=== PATIENT | female | born 1950 | race Caucasian/White ===

== ENCOUNTER 2017-02-21 15:48 | Emergency (ER) | payer MEDICARE, BC ==
[2017-02-21 16:34] VITALS: BP 130/74
--- NOTE | 2017-02-21 17:23 | UC ---
[facility] HPI - HPI Summary HPI Summary: TWO DAYS OF RIGHT LOWER JAW TOOTH PAIN. TRIED TO ESTABLISH DENTAL VISIT TODAY. NO FEVER. NO DISCHARGE. - History of Current Complaint Chief Complaint: UCDentalProblem Stated Complaint: DENTAL COMPLAINT Time Seen by Provider: 02/21/17 16:44 Hx Obtained From: Patient, Family/Production Support Analyst Onset/Duration: Gradual Onset, Lasting Days Severity: Moderate Pain Intensity: 5 Pain Scale Used: 0-10 Numeric Aggravating Factor(s): Chewing - Allergies/Home Medications Allergies/Adverse Reactions: Allergies Allergy/AdvReac Type Severity Reaction Status Date / Time Procaine [From Novocain] AdvReac Intermediate MAKES HER Verified 02/21/17 16:34 HEART RACE PMH/Surg Hx/FS Hx/Imm Hx Previously Healthy: Yes - Surgical History Surgical History: Yes Surgery Procedure, Year, and Place: R knee surgery - Family History Known Family History: Positive: None Negative: Blood Disorder - Social History Occupation: Retired Lives: With Family Alcohol Use: Occasionally Substance Use Type: None Smoking Status (MU): Never Smoked Tobacco Review of Systems Constitutional: Negative Skin: Negative Eyes: Negative ENT: Dental Pain Respiratory: Negative Cardiovascular: Negative Gastrointestinal: Negative Genitourinary: Negative Motor: Negative Neurovascular: Negative Musculoskeletal: Negative Neurological: Negative Psychological: Negative Is Patient Immunocompromised?: No All Other Systems Reviewed And Are Negative: Yes Physical Exam Triage Information Reviewed: Yes Appearance: Well-Appearing, No Pain Distress, Well-Nourished Vital Signs: Initial Vital Signs Temp 98.1 F 02/21/17 16:30 Pulse 82 02/21/17 16:30 Resp 16 02/21/17 16:30 BP 130/74 02/21/17 16:30 Pulse Ox 100 02/21/17 16:30 Vital Signs Reviewed: Yes Eye Exam: Normal ENT Exam: Normal ENT: Positive: Normal ENT inspection, Hearing grossly normal, Pharynx normal Dental: Positive: Percussion Tenderness @ - 24,25,26 Neck exam: Normal Neck: Positive: Supple, Nontender Respiratory Exam: Normal Respiratory: Positive: Chest non-tender, Lungs clear, Normal breath sounds, No respiratory distress, No accessory muscle use Cardiovascular Exam: Normal Cardiovascular: Positive: RRR, No Murmur, Pulses Normal Abdominal Exam: Normal Musculoskeletal Exam: Normal Neurological Exam: Normal Psychological Exam: Normal Skin Exam: Normal Dental Complaint Course/Dx - Differential Dx/Diagnosis Differential Diagnosis/Dx: Dental Abscess, Fractured Tooth, Odontogenic Pain Provider Diagnoses: ODONTOGENIC PAIN; GINGIVAL CELLULITIS 24,25,26 Discharge - Discharge Plan Condition: Stable Disposition: HOME Prescriptions: Amoxicillin/Clavulanate TAB* [Augmentin TAB 875*] 875 mg PO BID #20 tab Patient Education Materials: Dental Abscess (ED), Toothache (ED) Referrals: Paula Corona MD [Primary Care Provider] - [facility] 1 - TENDER HERE
== END 2017-02-21 17:10 | disposition home or self-care (01) ==
LOC: UCCORT 15:48
DX: K12.2 Cellulitis and abscess of mouth (principal); K08.89 Other specified disorders of teeth and supporting structures; Z88.4 Allergy status to anesthetic agent
CPT/HCPCS: 99212; G0463